=== PATIENT | male | born 1975 | race Caucasian/White ===

== ENCOUNTER 2017-10-07 15:50 | Inpatient (IN) | payer OTHER ==
[~2017-10-07 15:50] MED LIST: ISOVUE-370 76%-LOCM 1 ML ONE
[2017-10-07] MEDS ORDERED: Adacel (T-DAP) 0.5 ML VIAL ONE (15:56)
[2017-10-07] MEDS ORDERED: CEFAZOLIN/Water 2 GM/20 ML SYRINGE ONE (15:58)
[2017-10-07] MEDS ORDERED: Fentanyl 100 MCG/2 ML VIAL ONE ×2 (16:08→17:04)
[2017-10-07 16:12] LABS: #Lymphocytes 1.5 thou/uL (1.20-3.40); #Monocytes 1.3 thou/uL (0.11-0.59); %Basophils 0.1 % (0.0-1.0); %Eosinophils 0.3 % (0.0-10.0); %Lymphocytes 8.7 % (21.0-51.0); %Monocytes 7.7 % (0.0-10.0); %Neutrophils 83.2 % (42.0-75.0); Hemoglobin 15.6 g/dL (14.0-18.0); Mean Corpuscular HGB CONC 35.1 g/dL (32.0-36.0); Mean Corpuscular Hemoglobin 31.1 pg (27.0-31.0); Mean Corpuscular Volume 88.8 fl (80.0-94.0); Mean Platelet Volume 7.2 fL (7.4-10.4); Platelet Count 219 thou/uL (130-400); RBC Distribution Width 12.1 % (11.5-14.5); White Blood Cell (WBC) Count 16.8 thou/uL (4.8-10.8)
[2017-10-07 16:19] LABS: PTT 23.7 SEC (22.9-36.1)
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
[2017-10-07 16:24] LABS: Prothrombin Time 13.8 SEC (12.0-14.7)
[2017-10-07 16:28] LABS: ALT (SGPT) 43 U/L (8-55); AST (SGOT) 35 U/L (5-34); Albumin 4.1 g/dL (3.5-5.0); Alkaline Phosphatase 93 U/L (40-150); Anion Gap 8 mmol/L (10-20); BUN (Urea Nitrogen) 12 mg/dL (8.9-20.6); Bilirubin, Total 0.8 mg/dL (0.2-1.2); Calc. Creatinine Clearance 0 mL/min (70-130); Calcium 8.7 mg/dL (7.8-10.44); Carbon Dioxide 25 mmol/L (22-29); Chloride 109 mmol/L (98-107); Estimated GFR-MDRD 83; Globulin 2.8 g/dL (2.4-3.5); Glucose 148 mg/dL (70-105); Protein, Total 6.9 g/dL (6.0-8.3); Sodium 138 mmol/L (136-145)
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
[2017-10-07] MEDS ORDERED: Ondansetron ODT 4 MG TAB ONE (16:46)
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
[2017-10-07 17:03] LABS: Bilirubin Negative (Negative); Blood, Urine Large (Negative); Clarity CLEAR (Clear); Glucose, Urine (Dipstick) Negative (Negative); Leukocyte Negative (Negative); Nitrite Negative (Negative); Protein, Urine (Dipstick) Negative (Neg-Trace); pH, Urine 7.5 (5.0-9.0)
[2017-10-07] MEDS ORDERED: Ketorolac Tromethamine 30 MG/ML VIAL ONE (17:03)
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
[2017-10-07 17:05] LABS: Bacteria/HPF None Seen HPF (None Seen); Hyaline Casts/LPF 0-3 HYALINE CAST LPF (0-3 Hyaline); RBC/HPF GREATER THAN 50-TNTC HPF (0-3); Squamous Epithelial None Seen HPF (0-3); WBC/HPF 0-3 HPF (0-3)
[2017-10-07 17:12] LABS: Amphetamine Not Detected (NotDetected); Barbiturates Screen Not Detected (NotDetected); Benzodiazepine Screen Not Detected (NotDetected); Cocaine Metabolite Screen Not Detected (NotDetected); Medtox Control Line Valid? VALID (VALID); Medtox Reader # READER 1; Methadone Not Detected (NotDetected); Methamphetamine Not Detected (NotDetected); Opiate Screen Not Detected (NotDetected); Oxycodone Screen Not Detected (NotDetected); Phencyclidine (PCP) Not Detected (NotDetected); THC/Cannabinoid Screen Not Detected (NotDetected); Tricyclic Screen Not Detected (NotDetected)
[2017-10-07] MEDS ORDERED: Lidocaine 1% (PF) 30 ML VIAL ONE (17:26)
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
--- NOTE | 2017-10-07 17:33 | RAD ---
RIGHT HAND THREE VIEWS 10/07/17 HISTORY: Right hand pain. FINDINGS/IMPRESSION: There is a minimally displaced fracture involving the neck of the fifth metacarpal. There are tiny ra diopaque densities in the soft tissues which could represent foreign bodies. POS: [facility]
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
[2017-10-07 18:57] LABS: CKMB 1.8 ng/mL (0-6.6); Troponin I Less than 0.010 ng/mL (< 0.028)
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
[2017-10-07] MEDS ORDERED: Promethazine HCl 25 MG/ML VIAL IM PRN ×2 (20:09)
[2017-10-07] MEDS ORDERED: Cyclobenzaprine 10 MG TAB PO PRN (20:09)
[2017-10-07] MEDS ORDERED: traMADol HCl 50 MG TAB PO PRN (20:09)
[2017-10-07] MEDS ORDERED: hydrALAZINE 20 MG/ML VIAL SLOW IVP PRN (20:09)
[2017-10-07] MEDS ORDERED: Dextrose 50% Abboject 50 ML SYRINGE SLOW IVP PRN (20:09)
[2017-10-07] MEDS ORDERED: Ondansetron HCl/PF 4 MG/2 ML Vial IVP PRN (20:09)
[2017-10-07] MEDS ORDERED: Ondansetron ODT 4 MG TAB PO PRN (20:09)
[2017-10-07] MEDS ORDERED: Dextrose 5% in Water 1,000 ML IV PRN (20:09)
[2017-10-07] MEDS: Sodium Chloride 0.9% 1,000 ML IV SCH (21:21)
[2017-10-07] MEDS: Ketorolac Tromethamine 30 MG/ML VIAL IVP SCH (21:22)
[2017-10-07] MEDS: Acetaminophen 1,000 MG in Premix Bag 1 BAG IVPB SCH (21:22)
[2017-10-07] MEDS: Amoxicillin/Potassium Clav 875 MG TAB PO SCH (21:23)
[2017-10-07] MEDS: Famotidine 20 MG TAB PO SCH (21:23)
[2017-10-07 21:50] VITALS: BMI 26.9
[2017-10-08] MEDS: Morphine 4 MG/ML VIAL SLOW IVP PRN ×2 (00:16→03:18)
[2017-10-08] MEDS: Ketorolac Tromethamine 30 MG/ML VIAL IVP SCH ×2 (03:06→08:26)
[2017-10-08] MEDS: Acetaminophen 1,000 MG in Premix Bag 1 BAG IVPB SCH ×2 (03:07→08:26)
[2017-10-08] MEDS: Sodium Chloride 0.9% 1,000 ML IV SCH ×2 (04:30→13:27)
[2017-10-08 05:05] LABS: Anion Gap 9 mmol/L (10-20); BUN (Urea Nitrogen) 13 mg/dL (8.9-20.6); CK (CPK) 350 U/L (30-200); Calc. Creatinine Clearance 145 mL/min (70-130); Calcium 8.5 mg/dL (7.8-10.44); Carbon Dioxide 23 mmol/L (22-29); Chloride 107 mmol/L (98-107); Estimated GFR-MDRD Greater than 90; Glucose 112 mg/dL (70-105); Potassium 4.3 mmol/L (3.5-5.1); Sodium 135 mmol/L (136-145)
[2017-10-08 05:08] LABS: #Lymphocytes 1.1 thou/uL (1.20-3.40); #Monocytes 0.9 thou/uL (0.11-0.59); #Neutrophils 7.5 thou/uL (1.40-6.50); %Basophils 0.2 % (0.0-1.0); %Lymphocytes 11.3 % (21.0-51.0); %Monocytes 9.2 % (0.0-10.0); %Neutrophils 79.3 % (42.0-75.0); Hemoglobin 14.3 g/dL (14.0-18.0); Mean Corpuscular HGB CONC 35.2 g/dL (32.0-36.0); Mean Corpuscular Hemoglobin 31.5 pg (27.0-31.0); Mean Corpuscular Volume 89.4 fl (80.0-94.0); Mean Platelet Volume 7.4 fL (7.4-10.4); Platelet Count 206 thou/uL (130-400); RBC Distribution Width 12.1 % (11.5-14.5); Red Blood Cell (RBC) Count 4.52 mill/uL (4.70-6.10); White Blood Cell (WBC) Count 9.5 thou/uL (4.8-10.8)
[2017-10-08] MEDS: Famotidine 20 MG TAB PO SCH ×2 (08:27→20:57)
[2017-10-08] MEDS: Amoxicillin/Potassium Clav 875 MG TAB PO SCH ×2 (08:27→20:57)
--- NOTE | 2017-10-08 09:53 | PRG ---
DATE OF SERVICE: 10/08/2017 SUBJECTIVE: Please see Jose Manuel Barlow's note for full details. Mr. Duong feels better today. He is graciela ke, alert. His facial lacerations were closed by Dr. Henry. He has been afebrile. PHYSICAL EXAMINATION: VITAL SIGNS: Stable. CHEST: Clear. HEART: Regular rate and rhythm. ABDOMEN: Soft, nontender. EXTREMITIES: No upper or lower extremity deformity or pain. SPINE: His C-spine is cleared. He has no pain on palpation of anterior, posterior neck flexion, ext ension, rotation. ASSESSMENT: 1. Moderately displaced facial fractures and facial lacerations. 2. Tiny mediastinal question of ecchymoses without dyspnea or chest pain. PLAN: Repeat chest x-ray this morning. We will get plans for home FS, likely advance diet today, belén vyas discharge home soon.
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
[2017-10-08] MEDS: traMADol HCl 50 MG TAB PO PRN ×2 (13:23→17:58)
[2017-10-08] MEDS: Ibuprofen 800 MG TAB PO SCH ×2 (13:23→21:31)
[2017-10-08] MEDS: Acetaminophen 500 MG TAB PO SCH ×2 (17:58→23:51)
[2017-10-08] MEDS ORDERED: Dexamethasone 4 mg/ml Vial SLOW IVP SCH (18:00)
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
[2017-10-08] MEDS: Chlorhexidine Gluconate 15 ML UDCUP SSP SCH (20:57)
[2017-10-08] MEDS ORDERED: Triple Antibiotic Opth Oint 3.5 GM TUBE TOP SCH ×2 (21:00)
[2017-10-09] MEDS: Ibuprofen 800 MG TAB PO SCH ×2 (06:52→14:18)
[2017-10-09] MEDS: Acetaminophen 500 MG TAB PO SCH ×2 (06:52→12:25)
[2017-10-09] MEDS: Chlorhexidine Gluconate 15 ML UDCUP SSP SCH (08:31)
[2017-10-09] MEDS: Amoxicillin/Potassium Clav 875 MG TAB PO SCH (08:32)
[2017-10-09] MEDS: Famotidine 20 MG TAB PO SCH (08:32)
[2017-10-09] MEDS: traMADol HCl 50 MG TAB PO PRN ×2 (08:38→14:18)
[2017-10-09 12:10] VITALS: BP 109/68; TEMP 97.9
== END 2017-10-09 17:55 | disposition home or self-care (01) | DRG 86 ==
LOC: ERS 15:50 → SURG A 20:05
PROVIDERS: ADMIT Surgery; ATTEND Surgery
PROC: 0HQ1XZZ Repair Face Skin, External Approach (ICD-10-PCS; principal; 2017-10-07)
PROC: 09QKXZZ Repair Nasal Mucosa and Soft Tissue, External Approach (ICD-10-PCS; 2017-10-07)
PROC: 0HQ0XZZ Repair Scalp Skin, External Approach (ICD-10-PCS; 2017-10-07)
PROC: 0JQ13ZZ Repair Face Subcutaneous Tissue and Fascia, Percutaneous Approach (ICD-10-PCS; 2017-10-07)
DX: S02.19XA Other fracture of base of skull, initial encounter for closed fracture (principal); S27.892A Contusion of other specified intrathoracic organs, initial encounter; S02.411A LeFort I fracture, initial encounter for closed fracture; S01.81XA Laceration without foreign body of other part of head, initial encounter; S02.40EA Zygomatic fracture, right side, initial encounter for closed fracture; S02.2XXA Fracture of nasal bones, initial encounter for closed fracture; S42.112A Displaced fracture of body of scapula, left shoulder, initial encounter for closed fracture; S62.336A Displaced fracture of neck of fifth metacarpal bone, right hand, initial encounter for closed fracture; S01.01XA Laceration without foreign body of scalp, initial encounter; E78.5 Hyperlipidemia, unspecified; I10 Essential (primary) hypertension; G47.419 Narcolepsy without cataplexy; S61.412A Laceration without foreign body of left hand, initial encounter; H11.31 Conjunctival hemorrhage, right eye
CPT/HCPCS: 12011; 12032; 12052; 36415; 70450; 70486; 71045; 71260; 72125; 74177; 80048; 80053; 80306; 81003; 81015; 82150; 82550; 82553; 84484; 85025; 85610; 85730; 86850; 86900; 86901; 90471; 90715; 93005; 96361; 96374; 96375; 96376; G0390; J0131; J1885; J2001; J2270; J3010; Q0162

== ENCOUNTER 2017-10-11 05:06 | Emergency (ER) | payer BC, OTHER ==
[2017-10-11 05:27] LABS: #Eosinphils 0.1 thou/uL (0.0-0.7); #Lymphocytes 1.6 thou/uL (1.20-3.40); #Monocytes 0.8 thou/uL (0.11-0.59); #Neutrophils 6.9 thou/uL (1.40-6.50); %Basophils 0.3 % (0.0-1.0); %Eosinophils 0.6 % (0.0-10.0); %Lymphocytes 17.2 % (21.0-51.0); %Monocytes 8.5 % (0.0-10.0); %Neutrophils 73.4 % (42.0-75.0); Hemoglobin 14.2 g/dL (14.0-18.0); Mean Corpuscular HGB CONC 34.7 g/dL (32.0-36.0); Mean Corpuscular Hemoglobin 30.8 pg (27.0-31.0); Mean Corpuscular Volume 88.7 fl (80.0-94.0); Mean Platelet Volume 6.9 fL (7.4-10.4); Platelet Count 249 thou/uL (130-400); RBC Distribution Width 11.7 % (11.5-14.5); White Blood Cell (WBC) Count 9.3 thou/uL (4.8-10.8)
[2017-10-11] MEDS ORDERED: Ondansetron ODT 4 MG TAB ONE (05:47)
[2017-10-11] MEDS ORDERED: Morphine 4 MG/ML VIAL ONE (05:47)
[2017-10-11 05:48] LABS: ALT (SGPT) 23 U/L (8-55); AST (SGOT) 22 U/L (5-34); Albumin 4.1 g/dL (3.5-5.0); Alkaline Phosphatase 84 U/L (40-150); Anion Gap 13 mmol/L (10-20); BUN (Urea Nitrogen) 11 mg/dL (8.9-20.6); Bilirubin, Total 1.7 mg/dL (0.2-1.2); Calc. Creatinine Clearance 0 mL/min (70-130); Calcium 9.2 mg/dL (7.8-10.44); Carbon Dioxide 25 mmol/L (22-29); Chloride 104 mmol/L (98-107); Estimated GFR-MDRD Greater than 90; Globulin 3.1 g/dL (2.4-3.5); Glucose 142 mg/dL (70-105); Potassium 3.9 mmol/L (3.5-5.1); Protein, Total 7.2 g/dL (6.0-8.3); Sodium 138 mmol/L (136-145)
[2017-10-11 05:51] LABS: Bilirubin Negative (Negative); Blood, Urine Negative (Negative); Clarity CLEAR (Clear); Glucose, Urine (Dipstick) Negative (Negative); Leukocyte Negative (Negative); Nitrite Negative (Negative); Protein, Urine (Dipstick) Negative (Neg-Trace)
[2017-10-11 06:00] LABS: CKMB 0.5 ng/mL (0-6.6); Troponin I Less than 0.010 ng/mL (< 0.028)
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
[2017-10-11] MEDS ORDERED: ISOVUE-370 76%-LOCM 1 ML ONE (13:56)
== END 2017-10-11 08:21 | disposition home or self-care (01) ==
LOC: ERS 05:06
DX: R10.9 Unspecified abdominal pain (principal); E78.5 Hyperlipidemia, unspecified; E78.2 Mixed hyperlipidemia; I10 Essential (primary) hypertension; Z79.899 Other long term (current) drug therapy; V89.2XXA Person injured in unspecified motor-vehicle accident, traffic, initial encounter
CPT/HCPCS: 36415; 71260; 74177; 80053; 81003; 82553; 83605; 83690; 84484; 85025; 93005; 94760; 96360; 96361; J2270; Q0162

== ENCOUNTER 2017-10-12 12:45 | Outpatient (CLI) | payer BC ==
[2017-10-12 14:03] LABS: Hemoglobin 12.7 g/dL (14.0-18.0); Mean Corpuscular HGB CONC 34.8 g/dL (32.0-36.0); Mean Corpuscular Hemoglobin 30.9 pg (27.0-31.0); Mean Corpuscular Volume 88.8 fl (80.0-94.0); Mean Platelet Volume 6.5 fL (7.4-10.4); Platelet Count 223 thou/uL (130-400); RBC Distribution Width 11.9 % (11.5-14.5); White Blood Cell (WBC) Count 5.5 thou/uL (4.8-10.8)
== END 2017-10-12 12:46 | disposition home or self-care (01) ==
LOC: LABBT 12:45
PROVIDERS: ATTEND Dentist Oral and Maxillofacial Surgery
DX: Z01.812 Encounter for preprocedural laboratory examination (principal); S02.413A LeFort III fracture, initial encounter for closed fracture
CPT/HCPCS: 85027

== ENCOUNTER 2017-10-19 13:22 | Day surgery (SDC) | payer BC ==
[2017-10-12 13:21] VITALS: BMI 26.5
[2017-10-19] MEDS ORDERED: Lidocaine 2% w/Epinephrine 1:200K 20 ML VIAL ONE (13:32)
[2017-10-19] MEDS ORDERED: Chlorhexidine Gluconate 15 ML UDCUP SSP ONE (13:32)
[2017-10-19] MEDS ORDERED: Lidocaine 1% w/Epinephrine 1:100K 30 ML VIAL ONE (13:32)
[2017-10-19] MEDS ORDERED: Labetalol 100 MG/20 ML MDV ONE (14:00)
[2017-10-19] MEDS ORDERED: Metoclopramide HCl 10 MG/2 ML VIAL ONE (14:00)
[2017-10-19] MEDS ORDERED: Ondansetron HCl/PF 4 MG/2 ML Vial ONE (14:00)
[2017-10-19] MEDS ORDERED: Lidocaine 1% PF 5 ML VIAL ONE (14:00)
[2017-10-19] MEDS ORDERED: PROPOFOL 200 MG/20 ML VIAL ONE (14:00)
[2017-10-19] MEDS ORDERED: Glycopyrrolate 0.2 MG/ML 5 ML SYRINGE ONE (14:00)
[2017-10-19] MEDS ORDERED: Succinylcholine Chloride 20 MG/ML 10 ml SYRINGE FS ONE (14:00)
[2017-10-19] MEDS ORDERED: Esmolol 100 MG/10 ML VIAL ONE (14:00)
[2017-10-19] MEDS ORDERED: Dexamethasone 20 MG/5 ML VIAL ONE (14:00)
[2017-10-19] MEDS ORDERED: Dexamethasone 4 mg/ml Vial ONE (14:15)
[2017-10-19] MEDS ORDERED: CEFAZOLIN/Water 2 GM/20 ML SYRINGE ONE (14:15)
[2017-10-19] MEDS ORDERED: Fentanyl 100 MCG/2 ML VIAL ONE ×6 (14:49→22:20)
[2017-10-19] MEDS ORDERED: Midazolam HCl 2 mg/2 ml Vial ONE (14:49)
[2017-10-19] MEDS ORDERED: Bacitracin Zinc Ointment 30 gm TUBE ONE (15:03)
[2017-10-19] MEDS ORDERED: Oxymetazoline HCl 0.05% ( 15 ML ) ONE (15:03)
[2017-10-19] MEDS ORDERED: Hydrocortisone 1% Cream 30 GM TUBE ONE (15:03)
[2017-10-19] MEDS ORDERED: HYDROmorphone 0.5 MG/0.5 ML SYRINGE ONE ×2 (16:19→20:46)
[2017-10-19] MEDS ORDERED: Rocuronium Bromide 50 MG/5 ML VIAL ONE (19:25)
[2017-10-19] MEDS ORDERED: PROPOFOL 40 ML ONE (20:44)
[2017-10-19] MEDS ORDERED: Ophthalmic Irrigation Solution 30 ML ONE (21:01)
[2017-10-19] MEDS ORDERED: Promethazine HCl 25 MG/ML VIAL SLOW IVP PRN (22:00)
[2017-10-19] MEDS ORDERED: Meperidine HCl/PF 25 MG/ML VIAL SLOW IVP PRN (22:00)
[2017-10-19] MEDS ORDERED: HYDROmorphone 2 MG/ML VIAL SLOW IVP PRN (22:00)
[2017-10-19] MEDS ORDERED: Promethazine HCl 25 MG/ML VIAL IM PRN (22:00)
[2017-10-19] MEDS ORDERED: Ondansetron HCl/PF 4 MG/2 ML Vial IVP PRN ×2 (22:00→23:08)
[2017-10-19] MEDS ORDERED: D5 1/2 NS w/20 mEq KCL 1,000 ML ONE (22:27)
[2017-10-19] MEDS ORDERED: Sodium Chloride 0.65% Nasal 44 ML BOT EA NARE PRN (23:09)
[2017-10-19] MEDS ORDERED: diphenhydrAMINE 50 MG/ML VIAL IVP PRN (23:09)
[2017-10-19] MEDS: Morphine 4 MG/ML VIAL SLOW IVP PRN (23:40)
[2017-10-19] MEDS: D5 1/2 NS w/20 mEq KCL 1,000 ML IV SCH (23:43)
[2017-10-19] MEDS: Dexamethasone 4 mg/ml Vial SLOW IVP SCH (23:45)
[2017-10-19] MEDS: Clindamycin/D5W 600 MG in Premix Bag 1 BAG IVPB SCH (23:50)
[2017-10-20] MEDS: Ibuprofen 100 MG/5 ML UDCUP PO SCH ×5 (00:23→23:18)
[2017-10-20] MEDS: Hydrocodone-Acetamin 15 ML UDCUP PO PRN ×4 (02:46→22:45)
[2017-10-20] MEDS: Morphine 4 MG/ML VIAL SLOW IVP PRN ×2 (04:48→12:39)
[2017-10-20] MEDS: Clindamycin/D5W 600 MG in Premix Bag 1 BAG IVPB SCH ×4 (04:51→23:10)
[2017-10-20] MEDS: Dexamethasone 4 mg/ml Vial SLOW IVP SCH ×2 (09:18→16:18)
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
[2017-10-20] MEDS: D5 1/2 NS w/20 mEq KCL 1,000 ML IV SCH ×2 (12:42→21:30)
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
[2017-10-20] MEDS: Chlorhexidine Gluconate 15 ML UDCUP SSP SCH (21:32)
[2017-10-20] MEDS: Bacitracin Zinc 1 Packet TOP SCH (21:32)
[2017-10-21] MEDS: Ibuprofen 100 MG/5 ML UDCUP PO SCH ×2 (06:26→12:10)
[2017-10-21] MEDS: Clindamycin/D5W 600 MG in Premix Bag 1 BAG IVPB SCH ×2 (06:30→12:09)
[2017-10-21] MEDS: D5 1/2 NS w/20 mEq KCL 1,000 ML IV SCH (08:39)
[2017-10-21] MEDS: Hydrocodone-Acetamin 15 ML UDCUP PO PRN (08:40)
[2017-10-21] MEDS: Chlorhexidine Gluconate 15 ML UDCUP SSP SCH (08:40)
[2017-10-21] MEDS: Bacitracin Zinc 1 Packet TOP SCH (08:40)
[2017-10-21 12:27] VITALS: BP 138/87; TEMP 97.7
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
== END 2017-10-21 16:36 | disposition home or self-care (01) ==
LOC: SDC 13:22 → SJJU 22:03 → SDC 10-21 16:36
PROVIDERS: ATTEND Dentist Oral and Maxillofacial Surgery
PROC: 0NSN04Z Reposition Left Zygomatic Bone with Internal Fixation Device, Open Approach (ICD-10-PCS; principal; 2017-10-19)
PROC: 0CDWXZ1 Extraction of Upper Tooth, Multiple, External Approach (ICD-10-PCS; principal; 2017-10-19)
PROC: 0NSBXZZ Reposition Nasal Bone, External Approach (ICD-10-PCS; principal; 2017-10-19)
PROC: 0NSR04Z Reposition Maxilla with Internal Fixation Device, Open Approach (ICD-10-PCS; principal; 2017-10-19)
PROC: 0NSB04Z Reposition Nasal Bone with Internal Fixation Device, Open Approach (ICD-10-PCS; principal; 2017-10-19)
PROC: 0CDXXZ1 Extraction of Lower Tooth, Multiple, External Approach (ICD-10-PCS; principal; 2017-10-19)
PROC: 0NSM04Z Reposition Right Zygomatic Bone with Internal Fixation Device, Open Approach (ICD-10-PCS; principal; 2017-10-19)
DX: S02.413A LeFort III fracture, initial encounter for closed fracture (principal); S02.2XXA Fracture of nasal bones, initial encounter for closed fracture; S42.115A Nondisplaced fracture of body of scapula, left shoulder, initial encounter for closed fracture; K02.9 Dental caries, unspecified; E78.5 Hyperlipidemia, unspecified; G47.419 Narcolepsy without cataplexy; Z79.899 Other long term (current) drug therapy; V44.5XXA Car driver injured in collision with heavy transport vehicle or bus in traffic accident, initial encounter
CPT/HCPCS: 70486; 96374; C1713; J1100; J1170; J2001; J2250; J2270; J2405; J2704; J2765; J3010; J3490